=== PATIENT | female | born 1975 | race Asian ===

== ENCOUNTER 2019-02-03 07:06 | Day surgery (SDC) | payer BC ==
[2019-02-03] VITALS (17 sets, daily range): BP systolic 94–130; BP diastolic 50–75; PULSE 78–114; RESP 11–21
[~2019-02-03] VITALS: Ht 152.4 cm; Wt 55.4 kg
[~2019-02-03 07:06] MED LIST: CEFAZOLIN 2 GM/50 ML (PMX) 50 ML IVPB ONE; GLYCOPYRROLATE 0.4 MG INJ ONE; SEVOFLURANE 15 MIN ONE; SOD CHLORIDE 0.9% 1,000 ML IV SCH
[2019-02-03] MEDS ORDERED: BUPIVACAINE 0.25% (MPF) 30 ML INJ ONE (07:45)
--- NOTE | 2019-02-03 09:23 | PREAC ---
Date/Time of Note Date/Time of Note DATE: 02/03/19 TIME: 09:22 Anesthesia Eval and Record Evaluation Time Pre-Procedure Interview DATE: 02/03/19 TIME: 09:22 Age 43 Sex female NPO: 8 hrs Preoperative diagnosis Cholelithiasis Planned procedure Laparoscopic cholecystectomy Past Medical History Past Medical History: None Surgery & Anesthesia Issues No known issue Meds Anticoagulation: No Beta Misty within 24 hr: No Reason Beta Misty not given: Pt. not on B-Misty No Active Prescriptions or Reported Meds Current Medications Sodium Chloride 1,000 ml @ 75 mls/hr [id number] IV Last administered on 02/03/19at 08:08; Admin Dose 75 MLS/HR; Start 02/03/19 at 07:00 Meds reviewed: Yes Allergies Coded Allergies: No Known Allergy (Unverified , 02/03/19) Allergies Reviewed: Yes Labs/Studies Labs Reviewed: Reviewed by anesthesiologist Result Diagram: 02/03/19 0805 02/03/19 0805 Laboratory Tests 02/03/19 08:05 test: Negative Pre-procedure Exam Last vitals Vital Signs Date Temp Pulse Resp B/P (MAP) Pulse Ox O2 O2 Flow FiO2 Time Delivery Rate 02/03/19 96.7 81 16 121/75 100 Room Air 08:28 (90) Airway: Adequate mouth opening Mallampati: Mallampati I Teeth: Normal Lung: Normal Heart: Normal ASA Physical Status ASA physical status: 1 Emergency: None Planned Anesthetic General/MAC: ETT Planned Pain Management Parenteral pain med Pre-operative Attestations Prior to commencing anesthesia and surgery, the patient was re-evaluated, there was verification of: *The patient's identity *The results of appropriate recent lab work and preoperative vital signs *The above evaluation not changing prior to induction *Anesthetic plan, risk benefits, alternative and complications discussed with patient/family; questions answered; patient/family understands, accepts and wishes to proceed. JOSSUE WAGGONER MD Feb 03, 2019 09:23
[2019-02-03] MEDS ORDERED: PROPOFOL 20 ML ONE (09:29)
[2019-02-03] MEDS ORDERED: ROCURONIUM 50 MG INJ ONE (09:29)
[2019-02-03] MEDS ORDERED: SUCCINYLCHOLINE CHLORIDE 100 MG/5 ML SYG IV ONE (09:29)
[2019-02-03] MEDS ORDERED: LIDOCAINE 2% (SDV) 5 ML INJ ONE (09:29)
[2019-02-03] MEDS ORDERED: NEOSTIGMINE 3 MG/3 ML SYRINGE ONE (09:29)
[2019-02-03] MEDS ORDERED: GLYCOPYRROLATE 0.4 MG INJ ONE (09:29)
[2019-02-03] MEDS ORDERED: MEPERIDINE 100 MG INJ ONE (09:30)
[2019-02-03] MEDS ORDERED: ONDANSETRON 4 MG INJ ONE (09:31)
[2019-02-03] MEDS ORDERED: METOCLOPRAMIDE 10 MG INJ ONE (09:31)
[2019-02-03] MEDS ORDERED: CEFAZOLIN 1 GM INJ ONE (09:31)
[2019-02-03] MEDS ORDERED: OXYCODONE/ACETAMINOPHEN (5/325) TAB PO PRN ×2 (10:30)
[2019-02-03] MEDS ORDERED: MEPERIDINE 25 MG INJ IV PRN (10:30)
[2019-02-03] MEDS ORDERED: ONDANSETRON 4 MG INJ IV PRN (10:30)
[2019-02-03] MEDS ORDERED: FENTAnyl 50 MCG/ML VIAL IV PRN ×3 (10:30)
[2019-02-03] MEDS ORDERED: HYDROmorphONE 1 MG/5 ML IV SYRINGE IV PRN ×3 (10:30)
[2019-02-03] MEDS ORDERED: HYDROCODONE/APAP (5/325) TAB PO ONE (10:30)
[2019-02-03] MEDS ORDERED: DIPHENHYDRAMINE 50 MG INJ IV PRN (10:30)
[2019-02-03] MEDS ORDERED: MIDAZOLAM 1 MG/ML 2 ML INJ IV PRN (10:30)
[2019-02-03] MEDS ORDERED: METOCLOPRAMIDE 10 MG INJ IV PRN (10:30)
--- NOTE | 2019-02-03 10:40 | OPR ---
Date/Time of Note Date/Time of Note DATE: 02/03/19 TIME: 10:32 Operative Report Procedure Date: Feb 03, 2019 Preoperative Diagnosis symptomatic gallstones Postoperative Diagnosis same Operation/Procedure Performed 1. laparoscopic cholecystectomy 2. therapeutic injection of subcutaneous local anesthesia Surgeon see signature line Putty Remover none Anesthesia Type: general Estimated Blood Loss: 0 - 10 ml's Transfusion none Specimen gallbladder Grafts/Implants none Complications none Pt Condition Post Procedure: stable Indications This is a 43-year-old female with some tender gallstones. She required surgical excision of her gallbladder. Risks alternatives benefits and personally discussed the patient. Patient expressed understanding consents to the operation. Procedure Description Patient is taken to the OR and prepped and draped in usual sterile fashion. Surgical timeout was performed. IV antibiotics given. Infraumbilical incision was made with a 15 blade transversely. Dissection with cautery skin onto the fascia. The fascia was grasped with Dumas is divided with curved Galan scissors. 0 Vicryl use this was placed into the fascia. Leong trocar was introduced. Pneumoperitoneum is established. Midepigastric 12 mm optical trochars placed under direct visualization. Right upper quadrant upper flank 5 mm optical trochars were placed under direct visualization. Upon initial inspection there is some adhesions of the gallbladder which were taken down bluntly. The gallbladder is grasped with the fundus and retracted and lateral cephalad direction. [place] graspers were used to dissect out the cystic duct and cystic artery. The critical view is established. The cystic duct is divided to close proximal clip distal and the division was performed with laparoscopic scissors. Cystic artery was divided with 3 clips proximal to distal and the divisions performed laparoscopic scissors. The gallbladder was taken of the gallbladder bed. Good hemostasis status. The gallbladder is retrieved Endo Catch bag. All ports removed under direct visualization. Overdiuresis was tied down. Skin is closed using skin manfred. Therapeutic contains local anesthesia injected at the incision site. Dressings were applied. Bibiana ALVAREZ Feb 03, 2019 10:40
--- NOTE | 2019-02-03 11:20 | PAC ---
Date/Time of Note Date/Time of Note DATE: 02/03/19 TIME: 11:19 Post-Anesthesia Notes Post-Anesthesia Note Last documented vital signs Vital Signs Date Temp Pulse Resp B/P (MAP) Pulse Ox O2 O2 Flow FiO2 Time Delivery Rate 02/03/19 82 16 101/58 100 Mask 8.0 10:56 (72) 82 02/03/19 98.6 10:40 Activity: WNL Respiratory function: WNL Cardiovascular function: WNL Mental status: Baseline Pain reasonably controlled: Yes Hydration appropriate: Yes Nausea/Vomiting absent: Yes Comments BT: 98.5 JOSSUE WAGGONER MD Feb 03, 2019 11:20
== END 2019-02-03 12:39 | disposition home or self-care (01) ==
LOC: SDS 07:06
PROVIDERS: ATTEND Surgery
DX: K80.10 Calculus of gallbladder with chronic cholecystitis without obstruction (principal)
CPT/HCPCS: 47562; 80053; 84703; 85025; 85610; 85730; 88304; J0690; J2175; J2405; J2710; J2765; Z7512; Z7610